=== PATIENT | female | born 1960 | race Caucasian/White ===

== ENCOUNTER 2020-12-14 01:20 | Observation (INO) | payer OTHER ==
[~2020-12-14] VITALS: Ht 167.6 cm; Wt 72.6 kg
[~2020-12-14 01:20] MED LIST: JANUVIA 100 MG100 MG PO; LASIX20 MG PO; VALIUM 5 MG TAB5 MG PO; VICTOZA 1818 MG/3 ML SC; XIFAXAN550 MG PO
[2020-12-14 02:12] LABS: HEMOGLOBIN 13.4 gm/dl (12.3-15.3); RED BLOOD COUNT 4.76 M/UL (4.00-5.10); WHITE BLOOD COUNT 8.2 K/UL (4.5-11.0)
--- NOTE | 2020-12-14 05:08 | NUR ---
PT UNABLE TO RECALL COMPLETE MED LIST. WILL PASS ON IN REPORT AND [facility] WILL BE NOTIFIED IN AM IN ORDER TO OBTAIN AN ACCURATE MED LIST.
[2020-12-14] MEDS ORDERED: LEXAPRO20 MG PO (05:10)
[2020-12-14] MEDS ORDERED: AMBIEN10 MG PO (05:10)
[2020-12-14] MEDS ORDERED: AMITRIPTYLINE150 MG PO (05:10)
[2020-12-14] MEDS ORDERED: ESTRADIOL2 MG PO (05:11)
[2020-12-14] MEDS ORDERED: COREG25 MG PO (05:11)
[2020-12-14] MEDS ORDERED: SYNTHROID150 MCG PO (05:11)
[2020-12-14] MEDS ORDERED: PHENERGAN 25 MG25 M1 PO (10:19)
[2020-12-14] MEDS ORDERED: ZANAFLEX4 MG PO (10:20)
[2020-12-14] MEDS ORDERED: HYDROCODON-ACE1 EAC6 PO (10:20)
[2020-12-14] MEDS ORDERED: FLONASE 0.05% N16 GM (10:21)
[2020-12-14] MEDS ORDERED: ENULOSE10 GM/15 M PO (10:22)
[2020-12-14] MEDS ORDERED: NORVASC10 MG PO (10:23)
[2020-12-14] MEDS ORDERED: LINZESS145 MCG PO (10:24)
[2020-12-14] MEDS ORDERED: TYLENOL EXTRA500 MG PO (10:25)
[2020-12-15 15:51] LABS: HEMOGLOBIN 12.9 gm/dl (12.3-15.3); RED BLOOD COUNT 4.62 M/UL (4.00-5.10)
[2020-12-15 15:53] LABS: WHITE BLOOD COUNT 5.5 K/UL (4.5-11.0)
[2020-12-16 08:35] LABS: HEMOGLOBIN 12.5 gm/dl (12.3-15.3); RED BLOOD COUNT 4.5 M/UL (4.00-5.10); WHITE BLOOD COUNT 4.2 K/UL (4.5-11.0)
[2020-12-16 08:58] LABS: BUN/CREATININE RATIO 10 (0-10)
[2020-12-16] MEDS ORDERED: ISOSORBIDE MONO30 MG PO (09:26)
[2020-12-16] MEDS ORDERED: ATORVASTATIN CA20 MG PO (09:26)
[2020-12-16] MEDS ORDERED: ASPIRIN EC81 MG PO (09:26)
--- NOTE | 2020-12-16 12:12 | NUR ---
OUT PT ORDER GIVEN FOR EVENT MONITOR , NONE HERE TO APPLY PER RT , PT INSTRUCTED TO GO NEXT DOOR AND GET APPLIED SOON SHE LEAVES , PT VERBALIZES , FAMILY AT BEDSIDE NOTED
== END 2020-12-16 12:11 | disposition home or self-care (01) ==
LOC: ER1 01:20 → CDU 03:36 → M/S 03:36
PROVIDERS: Emergency Medicine; Internal Medicine; ADMIT Internal Medicine
DX: R07.89 Other chest pain (principal); I27.20 Pulmonary hypertension, unspecified; I25.10 Atherosclerotic heart disease of native coronary artery without angina pectoris; I08.2 Rheumatic disorders of both aortic and tricuspid valves; I10 Essential (primary) hypertension; E78.5 Hyperlipidemia, unspecified; E03.9 Hypothyroidism, unspecified; E11.40 Type 2 diabetes mellitus with diabetic neuropathy, unspecified; K74.60 Unspecified cirrhosis of liver; R00.1 Bradycardia, unspecified; R82.5 Elevated urine levels of drugs, medicaments and biological substances; M79.7 Fibromyalgia; Z95.1 Presence of aortocoronary bypass graft; Z95.5 Presence of coronary angioplasty implant and graft; Z20.822 Contact with and (suspected) exposure to COVID-19; Z23 Encounter for immunization; Z86.711 Personal history of pulmonary embolism; Z88.5 Allergy status to narcotic agent; Z88.8 Allergy status to other drugs, medicaments and biological substances; Z79.84 Long term (current) use of oral hypoglycemic drugs; Z82.49 Family history of ischemic heart disease and other diseases of the circulatory system; Z79.890 Hormone replacement therapy; Z79.899 Other long term (current) drug therapy
CPT/HCPCS: ECHO; 36415; 71045; 78452; 80053; 80061; 80307; 82140; 82550; 82553; 82962; 83036; 83690; 83735; 83874; 83880; 84100; 84439; 84443; 84484; 85025; 85027; 85379; 85610; 85730; 90686; 93005; 93017; 93306; 96372; 96374; 96375; 96376; 97161; 99285; A9502; G0008; G0378; J1650; J2270; J2405; J2785; J7040; Q9967; U0002

== ENCOUNTER 2022-04-29 19:39 | Emergency (ER) | payer OTHER ==
[~2022-04-29 19:39] MED LIST changes: +AMBIEN10 MG PO; +AMITRIPTYLINE150 MG PO; +ASPIRIN EC81 MG PO; +ATORVASTATIN CA20 MG PO; +COREG25 MG PO; +ENULOSE10 GM/15 M PO; +ESTRADIOL2 MG PO; +FLONASE 0.05% N16 GM; +HYDROCODON-ACE1 EAC6 PO; +ISOSORBIDE MONO30 MG PO; +LEXAPRO20 MG PO; +LINZESS145 MCG PO; +NORVASC10 MG PO; +PHENERGAN 25 MG25 M1 PO; +SYNTHROID150 MCG PO; +TYLENOL EXTRA500 MG PO; +ZANAFLEX4 MG PO
[2022-04-29] MEDS ORDERED: CEPHALEXIN500 M1 PO (20:10)
== END 2022-04-29 20:32 | disposition home or self-care (01) ==
LOC: ER1 19:39
DX: E11.621 Type 2 diabetes mellitus with foot ulcer (principal); L97.529 Non-pressure chronic ulcer of other part of left foot with unspecified severity; L97.519 Non-pressure chronic ulcer of other part of right foot with unspecified severity; I25.10 Atherosclerotic heart disease of native coronary artery without angina pectoris
CPT/HCPCS: 99282